=== PATIENT | male | born 1935 | race American Indian/Alaskan Native ===

== ENCOUNTER 2017-05-18 08:08 | Outpatient (CLI) | payer MEDICARE ==
--- NOTE | 2017-05-18 15:30 | PET Report ---
PET/CT:05/18/17 08:08:00 CLINICAL: Lung cancer staging. RADIOPHARMACEUTICAL: 15.6mCi F18-FDG. COMPARISON: None. TECHNIQUE- Following intravenous injection of F-18 FDG and an approximately 60 minute uptake period, CT and PET images from the mid skull to the upper thighs were acquired with the patient in the fasted state. No contrast was administered. The CT protocol used for this PET CT study is designed for attenuation correction and anatomic localization of PET abnormalities. This larry operator CT is not desired to produce and cannot replace, xopwj-dl-wkt-art diagnostic CT scans with specific imaging protocols for different body parts and indications. Plasma glucose at the time of this test: 100g/dl. The standardized uptake values (SUV) are normalized to patient body weight and indicate the highest activity concentration (SUV max) in a given disease site. FINDINGS: Brain--Physiologic FDG uptake in the visualized regions of the brain. Neck--Physiologic FDG uptake in the mucosal structures. An FDG avid right supraclavicular lymph node measures 1.0 x 0.9 cm with SUV 8.3. No other suspicious lymph nodes. Chest--Physiologic FDG uptake in mediastinal blood pool and myocardium. Lungs--An irregular and spiculated right upper lobe lung mass with is heterogeneous density measures 4.0 x 3.8 x 3.4 cm with SUV 14.1. A similar but more spiculated left upper lobe lung mass with heterogeneous density measures 2.8 x 1.8 cm with SUV 3.2. Pleura/pericardium--No abnormal uptake. Thoracic nodes--An FDG avid right hilar lymph node measures 2.2 x 1.4 cm with SUV 8.4. An FDG avid subcarinal lymph node measures 3.1 x 2.1 cm with SUV 14.2. An FDG avid pretracheal lymph node measures 1.6 x 1.2 cm with SUV 6.1. Hepatobiliary--No abnormal uptake. Liver background SUV mean, as a reference for comparing FDG studies, is 3.8 . No liver mass. Spleen--No abnormal uptake. Pancreas--No abnormal uptake. Adrenal Glands--No abnormal uptake. Kidneys/Ureters/Bladder--No abnormal uptake. Abdominopelvic Nodes--No abnormal uptake. Bowel/Peritoneum/Mesentery--No abnormal uptake. Pelvic organs--No abnormal uptake. Bones/Soft Tissues--No abnormal uptake. No suspicious bone lesions. Other findings: Focal FDG uptake at the lesser curvature of the gastric antrum with SUV 6.7. This is of uncertain significance as there is no corresponding mass or lymph node. I suspect this is benign physiologic activity related to gastric peristalsis. IMPRESSION-1. Bilateral FDG avid upper lobe lung masses which are suspicious for bronchogenic carcinoma. The larger mass in the right upper lobe measures 4.0 cm and the smaller mass of the left upper lobe measures 2.8 cm. 2. 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 3. No evidence of hepatic, adrenal or skeletal metastasis. 4. Probably benign focal FDG uptake at the lesser curvature of the gastric antrum.
== END 2017-05-18 08:09 | disposition home or self-care (01) ==
LOC: PET 08:08
PROVIDERS: ATTEND Internal Medicine Pulmonary Disease
DX: C78.1 Secondary malignant neoplasm of mediastinum (principal); C79.89 Secondary malignant neoplasm of other specified sites; C34.91 Malignant neoplasm of unspecified part of right bronchus or lung
CPT/HCPCS: 78815; 82962; A9552

== ENCOUNTER 2017-09-28 11:34 | Outpatient (CLI) | payer MEDICARE ==
--- NOTE | 2017-09-29 10:11 | PET Report ---
PET/CT:09/28/17 11:34:00 CLINICAL: Metastatic lung cancer restaging. RADIOPHARMACEUTICAL: 14.79mCi F18-FDG. COMPARISON: 05/18/17 PET/CT TECHNIQUE- Following intravenous injection of F-18 FDG and an approximately 60 minute uptake period, CT and PET images from the mid skull to the upper thighs were acquired with the patient in the fasted state. No contrast was administered. The CT protocol used for this PET CT study is designed for attenuation correction and anatomic localization of PET abnormalities. This latin dance instructor CT is not desired to produce and cannot replace, hpith-ht-lbj-art diagnostic CT scans with specific imaging protocols for different body parts and indications. Plasma glucose at the time of this test: 109g/dl. The standardized uptake values (SUV) are normalized to patient body weight and indicate the highest activity concentration (SUV max) in a given disease site. FINDINGS: Brain--Physiologic FDG uptake in the visualized regions of the brain. Neck--Physiologic FDG uptake in mucosal structures. The previously described FDG avid right supraclavicular lymph node measures less than 1 cm with SUV 2.3 compared to 8.3. Chest--Physiologic FDG uptake in mediastinal blood pool and myocardium. Lungs--The FDG avid right upper lobe lung mass measures 3.8 x 2.3 cm with SUV 5.0 compared to 4.0 x 3.8 cm and SUV 14.1. The spiculated left upper lobe mass is decreased in density and measures 2.5 x 1.8 cm with SUV 1.6 compared to 2.8 x 1.8 cm and SUV 3.2 on the last exam. Pleura/pericardium--no abnormal uptake. Thoracic nodes--Decreased FDG uptake in a dominant right hilar lymph node with SUV 3.6 compared to 13.3. Decrease FDG uptake in a subcarinal lymph node with SUV 4.2 compared to 17.2. Hepatobiliary--No abnormal uptake. Liver background SUV mean, as a reference for comparing FDG studies, is 2.1 compared to 3.8 on the last exam. No liver mass. Spleen--No abnormal uptake. Pancreas--No abnormal uptake. Adrenal Glands--No abnormal uptake. Kidneys/Ureters/Bladder--No abnormal uptake. Abdominopelvic Nodes--No abnormal uptake. Bowel/Peritoneum/Mesentery--No abnormal uptake. The previously described FDG uptake in the stomach is no longer identified. Physiologic FDG uptake in small and large bowel. Pelvic organs--No abnormal uptake. Bones/Soft Tissues--A single small FDG avid bone lesion involving the right L4 pedicle with SUV 4.0 compared to 6.0. The lesion is not apparent on the CT portion of the exam. No other bone lesions. IMPRESSION- 1. Partial response to treatment with decreased size and FDG uptake in bilateral upper lobe lung masses and decreased FDG uptake in right supraclavicular, right hilar and mediastinal lymph nodes. 2. A single bone metastasis involving the right L4 pedicle demonstrates decreased FDG uptake. 3. No new lesions.
== END 2017-09-28 11:35 | disposition home or self-care (01) ==
LOC: PET 11:34
PROVIDERS: ATTEND Internal Medicine Hematology & Oncology
DX: C79.51 Secondary malignant neoplasm of bone (principal); C34.91 Malignant neoplasm of unspecified part of right bronchus or lung; R79.89 Other specified abnormal findings of blood chemistry
CPT/HCPCS: 78815; 82962; A9552

== ENCOUNTER 2017-12-28 09:30 | Outpatient (CLI) | payer MEDICARE ==
--- NOTE | 2018-01-01 11:48 | PET Report ---
PET/CT:12/28/17 09:30:00 CLINICAL: Lung are cancer restaging. RADIOPHARMACEUTICAL: 14.8mCi F18-FDG. COMPARISON: 09/28/17 PET/CT TECHNIQUE- Following intravenous injection of F-18 FDG and an approximately 60 minute uptake period, CT and PET images from the mid skull to the upper thighs were acquired with the patient in the fasted state. No contrast was administered. The CT protocol used for this PET CT study is designed for attenuation correction and anatomic localization of PET abnormalities. This rescue boat operator CT is not desired to produce and cannot replace, aafvr-jh-sdu-art diagnostic CT scans with specific imaging protocols for different body parts and indications. Plasma glucose at the time of this test: 100g/dl. The standardized uptake values (SUV) are normalized to patient body weight and indicate the highest activity concentration (SUV max) in a given disease site. FINDINGS: Brain--Physiologic FDG uptake in the visualized regions of the brain. Neck--Physiologic FDG uptake in mucosal structures.. Chest--Physiologic FDG uptake in mediastinal blood pool and myocardium. Lungs--The previously described right upper lobe lung mass measures 3.4 x 1.9 cm and SUV of 3.1 compared to 3.8 x 2.3 cm and SUV 5.0. Be a portion of the mass which is FDG avid is also much smaller. The irregular spiculated left upper lobe lung mass is slightly smaller and measures 2.9 x 2.5 cm with SUV 1.7 compared to 3.5 x 2.5 cm and SUV 1.6. Pleura/pericardium--No abnormal uptake. No pleural effusion. Thoracic nodes--No abnormal uptake. The previously described FDG avid right hilar and subcarinal lymph nodes are no longer FDG avid. A right hilar lymph node measures 1.5 x 1.0 cm compared to 2.1 x 1.5 cm. Hepatobiliary--No abnormal uptake. Liver background SUV mean, as a reference for comparing FDG studies, is 2.7 compared to 1.8 on the last exam. No liver mass. Spleen--No abnormal uptake. Pancreas--No abnormal uptake. Adrenal Glands--No abnormal uptake. Kidneys/Ureters/Bladder--No abnormal uptake. Abdominopelvic Nodes--No abnormal uptake. Bowel/Peritoneum/Mesentery--No abnormal uptake. Pelvic organs--No abnormal uptake. Bones/Soft Tissues--No abnormal uptake. FDG uptake in the right L4 pedicle has resolved. The pedicle has become more sclerotic. A 7 mm round sclerotic lesion of the L2 vertebral body is more dense than on the last exam and demonstrates no FDG uptake. IMPRESSION- Positive response to therapy with decreased size and FDG uptake of bilateral upper lobe lung masses. Resolution of FDG uptake in right hilar and mediastinal lymph nodes and resolution of FDG uptake in the right L4 lumbar pedicle. A 7 mm L2 vertebral body lesion appears to be a metastasis with treatment effect. No new disease.
== END 2017-12-28 09:31 | disposition home or self-care (01) ==
LOC: PET 09:30
PROVIDERS: ATTEND Internal Medicine Hematology
DX: C34.91 Malignant neoplasm of unspecified part of right bronchus or lung (principal); R91.8 Other nonspecific abnormal finding of lung field; M89.9 Disorder of bone, unspecified; K21.9 Gastro-esophageal reflux disease without esophagitis; Z79.899 Other long term (current) drug therapy
CPT/HCPCS: 78815; 82962; A9552

== ENCOUNTER 2018-04-05 10:51 | Outpatient (CLI) | payer MEDICARE ==
--- NOTE | 2018-04-06 10:00 | PET Report ---
PET/CT:04/05/18 10:51:00 CLINICAL: Lung cancer restaging. RADIOPHARMACEUTICAL: 13.64mCi F18-FDG. COMPARISON: 12/28/17 PET/CT TECHNIQUE- Following intravenous injection of F-18 FDG and an approximately 60 minute uptake period, CT and PET images from the mid skull to the upper thighs were acquired with the patient in the fasted state. No contrast was administered. The CT protocol used for this PET CT study is designed for attenuation correction and anatomic localization of PET abnormalities. This vendor analyst CT is not desired to produce and cannot replace, cxlkp-ua-qgf-art diagnostic CT scans with specific imaging protocols for different body parts and indications. Plasma glucose at the time of this test: 119g/dl. The standardized uptake values (SUV) are normalized to patient body weight and indicate the highest activity concentration (SUV max) in a given disease site. FINDINGS: Brain--Physiologic FDG uptake in the visualized regions of the brain. Neck--Physiologic FDG uptake . Chest--Physiologic FDG uptake in mediastinal blood pool and myocardium. Lungs--Stable size right upper lobe lung mass measuring 3.4 x 2.0 cm with SUV 2.4 compared to 3.1 on the last exam. Stable irregular left upper lobe lung mass measuring 2.8 x 2.8 cm with SUV 1.5 compared to 2.9 x 2.5 cm and SUV 1.7 on the last exam. Pleura/pericardium--No abnormal uptake. Thoracic nodes--No abnormal uptake. The previously described right hilar lymph node measures 2.3 x 1.7 cm and SUV 2.2. Hepatobiliary--No abnormal uptake. Liver background SUV mean, as a reference for comparing FDG studies, is 3.0 compared to 2.7 on the last exam. No liver mass. Spleen--No abnormal uptake. Pancreas--No abnormal uptake. Adrenal Glands--No abnormal uptake. Kidneys/Ureters/Bladder--No abnormal uptake. Abdominopelvic Nodes--No abnormal uptake. Bowel/Peritoneum/Mesentery--No abnormal uptake. Pelvic organs--No abnormal uptake. Bones/Soft Tissues--No abnormal uptake. Stable 7 mm sclerotic lesion of the L2 vertebral body and stable sclerotic lesion of the right L4 pedicle. IMPRESSION- 1. A stable size right upper lobe lung mass with decreased FDG uptake and a stable left upper lobe lung mass with FDG uptake equal to background. 2. Stable right hilar lymph node with minimal FDG uptake. 3. Stable sclerotic bone lesions with no FDG uptake. 4. No new disease.
== END 2018-04-05 10:52 | disposition home or self-care (01) ==
LOC: PET 10:51
PROVIDERS: ATTEND Internal Medicine Hematology
DX: C34.91 Malignant neoplasm of unspecified part of right bronchus or lung (principal); R91.8 Other nonspecific abnormal finding of lung field
CPT/HCPCS: 78815; A9552

== ENCOUNTER 2019-04-04 08:28 | Outpatient (CLI) | payer MEDICARE ==
--- NOTE | 2019-04-04 14:56 | PET Report ---
PET/CT CLINICAL: Lung cancer restaging. RADIOPHARMACEUTICAL: 13.397 mCi F18-FDG. COMPARISON: 10/18/2018 PET/CT TECHNIQUE- Following intravenous injection of F-18 FDG and an approximately 60 minute uptake period , CT and PET images from the mid skull to the upper thighs were acquired with the patient in the fas venkatesh state. No contrast was administered. The CT protocol used for this PET CT study is designed for attenuation correction and anatomic localization of PET abnormalities. This dairy tester CT is not heide ired to produce and cannot replace, odtgf-ok-xjq-art diagnostic CT scans with specific imaging prot ocols for different body parts and indications. Plasma glucose at the time of this test: 108 g/dl. The standardized uptake values (SUV) are normalized to patient body weight and indicate the highest activity concentration (SUV max) in a given disease site. FINDINGS: Brain--Physiologic FDG uptake in the visualized regions of the brain. Neck--Physiologic FDG uptake in mucosal structures. No mass or lymphadenopathy. Chest--Physiologic FDG uptake in mediastinal blood pool and myocardium. Lungs--Right upper lobe mass measures approximately 4.0 x 1.7 compared to 3.2 x 2.0 cm with SUV 4.5 compared to SUV 2.7 on the last exam. Stable left upper lobe scar measuring 2.7 x 2.3 cm this should be 2.1. No other lung mass or nodules. Pleura/pericardium--No abnormal uptake. Thoracic nodes--FDG avid right hilar lymph node with SUV 5.1 compared to 3.1 on the last exam. Hepatobiliary--No abnormal uptake. Liver background SUV mean, as a reference for comparing FDG studi es, is 2.1 compared to 2.5 on the last exam. No liver mass. Spleen--No abnormal uptake. Pancreas--No abnormal uptake. Adrenal Glands--No abnormal uptake. Kidneys/Ureters/Bladder--No abnormal uptake. Abdominopelvic Nodes--No abnormal uptake. Bowel/Peritoneum/Mesentery--No abnormal uptake. Pelvic organs--No abnormal uptake. Bones/Soft Tissues--The previously described lesion of the right L4 pedicle has become more scleroti c and is now non-FDG avid. However, lesions of the L2 vertebral body to the right of midline have bec ome lytic an FDG avid SUV 17.5. IMPRESSION: Progression of disease with new FDG avid lytic L2 metastases and increased FDG uptake in the right upper lobe lung mass and right hilar lymph node. Signer Name: Eric Ledbetter MD Signed: 04/04/2019 2:52 PM Workstation Name: [id number]
== END 2019-04-04 08:29 | disposition home or self-care (01) ==
LOC: PET 08:28
PROVIDERS: ATTEND Internal Medicine Hematology
DX: C34.11 Malignant neoplasm of upper lobe, right bronchus or lung (principal); R73.09 Other abnormal glucose
CPT/HCPCS: 78815; 82962; A9552

== ENCOUNTER 2020-01-02 12:35 | Outpatient (CLI) | payer MEDICARE ==
--- NOTE | 2020-01-02 15:46 | XRay Report ---
LEFT HIP 3 VIEWS INDICATION / CLINICAL INFORMATION: Left hip and flank pain. COMPARISON: PET/CT from 04/04/2019. FINDINGS: BONES and JOINT(S): No acute fracture or subluxation. Mild lower lumbar spondylosis is noted. No richi tional significant arthritis. Not seen on the prior PET/CT, a 9 mm round sclerotic lesion is present along the intertrochanteric region of the right femur and is incompletely evaluated. SOFT TISSUES: No significant abnormality. ADDITIONAL FINDINGS: None. IMPRESSION: 1. No acute abnormality of the left hip is seen to explain the patient's pain. 2. Indeterminate right femoral sclerotic lesion as above. Metastatic disease cannot be excluded. 3. Mild lumbar spondylosis. Signer Name: Timo Wilson MD Signed: 01/02/2020 3:42 PM Workstation Name: [id number][id number]
== END 2020-01-02 12:36 | disposition home or self-care (01) ==
LOC: SPVIMAG 12:35
PROVIDERS: ATTEND Internal Medicine Hematology
DX: C34.91 Malignant neoplasm of unspecified part of right bronchus or lung (principal); M47.816 Spondylosis without myelopathy or radiculopathy, lumbar region; M89.9 Disorder of bone, unspecified